=== PATIENT | female | born 2000 | race Caucasian/White ===

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

== ENCOUNTER 2022-01-06 03:50 | Emergency (ER) | payer BC, SELFPAY ==
[2022-01-06 03:57] VITALS: BP 122/85; PULSE 85; RESP 18; O2SAT 98; BMI 26.6
--- NOTE | 2022-01-06 04:07 | ED_ITS ---
HPI - General Adult General: Chief complaint: General Medical Stated complaint: spitting up blood post surgery Time Seen by Provider: 01/06/22 03:53 Source: patient Mode of arrival: ambulatory Limitations: no limitations History of Present Illness: 21-year-old female who has a history of tonsillectomy 1 week ago. States she had woken up tonight roughly an hour ago with bleeding. States she is also having some pain and was bleeding and having clots passed. She states that the bleeding seemed to have resolved since arriving. She denies any vomiting or diarrhea she rates her pain a 6 out of 10 currently Associated symptoms: Deny chest pain, dyspnea, headache(s), nausea, rash or vomiting Review of Systems Const: Denies: fever(s), chills, body aches or change in appetite Eyes: Denies: blurry vision or eye discomfort ENMT: Reports: throat pain Card: Denies: chest pain Resp: Denies: dyspnea GI: Denies: abdominal pain, nausea, vomiting or diarrhea : Denies: dysuria Musc: Denies: neck pain or back pain Skin/Breast: Denies: rash Neuro: Denies: headache(s) Psych: Denies: depression Prashanth/Lymph: Denies: easy bruising All/Imm: Denies: urticaria PFSH ED PFSH: Medical History (Updated 01/06/22 @ 05:29 by Patricia Real MD) Family planning, Depo-Provera contraception monitoring/administration Social History Smoking and tobacco status: never smoked Alcohol intake: never Physical Exam Const: COMMON NORMALS: no acute distress, patient oriented x3 and healthy appearing HENMT: COMMON NORMALS: normocephalic and atraumatic HEAD & SCALP: normocephalic and atraumatic OTHER: No active bleeding at this time Eye: COMMON NORMALS: Equal, round and reactive pupils present and EOMs intact bilaterally PUPIL: Yes Equal, round and reactive pupils present Neck/C-Spine: COMMON NORMALS: full ROM and supple Chest: COMMONS NORMALS: normal inspection of the chest and normal palpation of entire chest wall Resp: COMMON NORMALS: normal respiratory effort, No retractions, No use of accessory muscles and clear to auscultation bilaterally AUSCULTATION: clear to auscultation bilaterally Cardio: COMMON NORMALS: regular rate, regular rhythm and No murmurs present (Cardio) RATE: regular rate RHYTHM: regular rhythm GI: COMMON NORMALS: Normal to inspection, nondistended, normoactive bowel sounds present, Soft to palpation, non-tender and no masses PALPATION: Yes Soft to palpation Extremity: COMMON NORMALS: normal to inspection and full ROM Neuro: COMMON NORMALS: patient oriented x3, moves all extremities and no focal motor deficits Psych: COMMON NORMALS: mental status grossly normal, Normal thought process p resent and cooperative THOUGHT PROCESS: Normal thought process present Skin: COMMON NORMALS: no rashes or lesions noted and no wounds GENERAL SKIN EXAM: no rashes or lesions noted Course Vital Signs: Vital signs: Vital Signs Temperature 98.6 F 01/06/22 04:16 Pulse Rate 85 01/06/22 03:57 Respiratory Rate 18 01/06/22 03:57 Blood Pressure 122/85 01/06/22 03:57 Pulse Oximetry 98 01/06/22 03:57 [facility] - General Adult Medical Decision Making Patient presents with a postop sensory hemorrhage. Patient was seen by her ENT Dr. Rajiv was able to control the bleeding with silver nitrate he has placed her on more oral pain medicine she is stable for discharge is to follow with him and return if worsening. Lab Data : 01/06/22 04:01 Laboratory Results WBC 11.7 10^3/uL (4.5-13.0) 01/06/22 04:01 RBC 5.12 10^6/uL (4.1-5.3) 01/06/22 04:01 Hgb 15.4 g/dL (11.5-15.3) H 01/06/22 04:01 Hct 45.0 % (37.0-47.0) 01/06/22 04:01 MCV 87.9 fl (81-99) 01/06/22 04:01 MCH 30.1 pg (28.0-34.0) 01/06/22 04:01 MCHC 34.2 g/dL (30.0-36.0) 01/06/22 04:01 RDW 11.4 % (12.1-15.1) L 01/06/22 04:01 Plt Count 440 10^3/cmm (130-400) H 01/06/22 04:01 MPV 9.5 fL (7.4-10.4) 01/06/22 04:01 Neut % (Auto) 74.3 % 01/06/22 04:01 Lymph % (Auto) 14.7 % 01/06/22 04:01 [place] % (Auto) 7.2 % 01/06/22 04:01 Eos % (Auto) 1.5 % 01/06/22 04:01 Baso % (Auto) 0.7 % 01/06/22 04:01 Neut # (Auto) 8.71 10^3/uL (1.8-8.0) H 01/06/22 04:01 Lymph # (Auto) 1.7 10^3/uL (1.5-6.5) 01/06/22 04:01 [place] # (Auto) 0.9 10^3/uL (0.2-0.9) 01/06/22 04:01 Eos # (Auto) 0.2 10^3/uL (0.0-0.8) 01/06/22 04:01 Baso # (Auto) 0.1 10^3/uL (0.0-0.1) 01/06/22 04:01 Nucleated RBC % (auto) 0 % 01/06/22 04:01 Nucleated RBCs # 0.0 /100WBC 01/06/22 04:01 Discharge Plan Discharge Patient Disposition: Home Clinical Impression: Post-tonsillectomy hemorrhage Condition: Stable Prescriptions: No Action medroxyprogesterone [Depo-Provera] 150 mg/mL suspension 150 mg IM ONCE 90 Days Qty: 1 0RF Discharge Orders: Discharge ED (Routine); Ordered 01/06/22 Ordered By: Patricia Real Referrals: Alvarado Lopez MD [Physician] - 1-3 days Discharge Diet: Advance as tolerated Discharge Activity: Resume usual activity Patient Instructions: Tonsillectomy (DC) Coding Level of Care Code ED Land [employer] 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
[2022-01-06 04:09] LABS: Basophils # 0.1 10^3/uL (0.0-0.1); Basophils % 0.7 %; Eosinophils # 0.2 10^3/uL (0.0-0.8); Eosinophils % 1.5 %; Hemoglobin 15.4 g/dL (11.5-15.3); Lymphocytes # 1.7 10^3/uL (1.5-6.5); Lymphocytes % 14.7 %; Mean Corpuscular HGB Conc 34.2 g/dL (30.0-36.0); Mean Corpuscular Hemoglobin 30.1 pg (28.0-34.0); Mean Corpuscular Volume 87.9 fl (81-99); Mean Platelet Volume 9.5 fL (7.4-10.4); Monocytes # 0.9 10^3/uL (0.2-0.9); Monocytes % 7.2 %; Neutrophils # 8.71 10^3/uL (1.8-8.0); Neutrophils % 74.3 %; Nucleated Red Blood Cells % 0 %; Platelet Count 440 10^3/cmm (130-400); Red Blood Count 5.12 10^6/uL (4.1-5.3); Red Cell Distribution Width 11.4 % (12.1-15.1); White Blood Count 11.7 10^3/uL (4.5-13.0)
[2022-01-06] MEDS: ondansetron 2 mg/ML SDV 2 mL 4 MG IVP (04:14)
[2022-01-06] MEDS: HYDROmorphone 1 mg/mL INJ 1 mL 0.5 MG IVP (04:14)
[2022-01-06] MEDS: sodium chloride 0.9% 1,000 ML 999 ML IV (04:15)
[2022-01-06 04:16] VITALS: TEMP 37
[2022-01-06 04:30] VITALS: BP 128/93; PULSE 70; O2SAT 98
[2022-01-06 05:01] VITALS: BP 133/79; PULSE 70; O2SAT 98
--- NOTE | 2022-01-06 05:29 | PM.CONSULT ---
Providers/Reason For Consult Consulting Physician/Specialty*: Alvarado Lopez MD Otolaryngology, Head & Neck Surgery Reason for Consult*: Post tonsillectomy bleeding Requesting Physician: TYRA HAIDER MD Attending Physician: Alvarado Lopez MD History of Present Illness History of Present Illness Emily Vidal is a 21 year old female who is POD #7 s/p bilateral tonsillectomy who presents this morning with spontaneous oral bleeding. Review of Systems General: Reports: 10 or more systems reviewed and unremarkable except in HPI and below Medications/Allergies Home Medications Medication Instructions Recorded Confirmed Last Taken Type medroxyprogesterone 150 mg/mL 150 mg IM ONCE 90 Days #1 ml 02/13/20 03/31/20 Unknown Rx intramuscular suspension (Depo-Provera) Allergies Allergy/AdvReac Type Severity Reaction Status Date / Time No Known Allergies Allergy Verified 03/31/20 16:10 PFSH Acute PFSH: Medical History (Updated 01/06/22 @ 05:29 by Patricia Real MD) Family planning, Depo-Provera contraception monitoring/administration Social History Smoking and tobacco status: never smoked Alcohol intake: never Vitals/I&O/Wt Last Vital Signs Temp 98.6 F 01/06/22 04:16 Pulse 85 01/06/22 03:57 Resp 18 01/06/22 03:57 BP 122/85 01/06/22 03:57 Pulse Ox 98 01/06/22 03:57 Weight last 48 hrs Weight 74.843 kg Physical Exam Const: COMMON NORMALS: no acute distress and patient oriented x3 HENMT: COMMON NORMALS: normocephalic, atraumatic and Normal external nose present HEAD & SCALP: normocephalic and atraumatic NOSE: Normal external nose present TEETH & GINGIVA: Yes other (There is scant fresh blood in the right tonsillar fossa) Eye: COMMON NORMALS: EOMs intact bilaterally and conjunctivae normal CONJUNCTIVA: Yes conjunctivae normal Neck/C-Spine: COMMON NORMALS: full ROM and no lymphadenopathy Resp: COMMON NORMALS: normal respiratory effort, No retractions and No use of accessory muscles Neuro: COMMON NORMALS: patient oriented x3 Data : 01/06/22 04:01 A&P Assessment and plan (1) Post-tonsillectomy hemorrhage: Impression: 21 yo wf who is POD #7 s/p bilateral tonsillectomy with post tonsillectomy bleeding Plan: - Right tonsil fossa bleeding controlled with AgN03 - Resume post op care - F/U in Dr. Lopez's office on January, @ 13:00 hours - Notify Dr. 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
[2022-01-06 05:31] VITALS: BP 141/87; PULSE 63; O2SAT 98
[2022-01-06 05:38] VITALS: RESP 22; O2SAT 98
[2022-01-06] MEDS: HYDROmorphone 1 mg/mL INJ 1 mL IVP (05:38)
== END 2022-01-06 05:48 | disposition home or self-care (01) ==
PROVIDERS: Emergency Provider Emergency Medicine
DX: K91.840 Postprocedural hemorrhage of a digestive system organ or structure following a digestive system procedure (principal); Z98.890 Other specified postprocedural states
CPT/HCPCS: 12345; 85025; 96374; 96375; 96376; 99284; J1170; J2405; J7030